=== PATIENT | male | born 2000 | race Two or more races ===

== ENCOUNTER 2024-03-13 10:40 | Emergency (ER) | payer MEDICAID, OTHER ==
[~2024-03-13] VITALS: Ht 185.4 cm; Wt 131.5 kg
[2024-03-13 12:28] VITALS: BP 134/64; TEMP 98; O2SAT 97
== END 2024-03-13 12:28 | disposition home or self-care (01) ==
LOC: ER 10:40
DX: M25.551 Pain in right hip (principal)
CPT/HCPCS: 73502